=== PATIENT | male | born 1935 | race Caucasian/White ===

== ENCOUNTER 2018-06-13 05:15 | Inpatient (IN) | payer OTHER ==
[~2018-06-13] VITALS: Ht 167.6 cm; Wt 86.4 kg
[~2018-06-13 05:15] MED LIST: ALLO300T2 PO; ASPI-319 PO; ATEN-173 PO; ATOR80TA PO; CHOL100027 PO; MULTTAB58 PO; OMEP20CA9 PO; VITA400C3 PO
[2018-06-13 07:04] VITALS: BP 146/89; PULSE 90; TEMP 36.6; O2SAT 93; Ht 167.6 cm; Wt 86.4 kg
[2018-06-13 07:50] LABS: HEMATOCRIT 30.4 % (42-52); HEMOGLOBIN 9.4 g/dL (14.0-18.0); MEAN CELL VOLUME 85.2 fL (80-100); MEAN CORPUSCULAR HEMOGLOBIN 26.3 pg (25-34); MEAN CORPUSCULAR HGB CONC 30.9 g/dl (32-36); MEAN PLATELET VOLUME 8.8 fL (7.4-10.4); PLATELET COUNT 193 K/uL (130-400); RED CELL DISTRIBUTION WIDTH CV 15.1 % (11.5-14.5); RED CELL DISTRIBUTION WIDTH SD 46.5 fL (36.4-46.3); WHITE BLOOD COUNT 11.81 K/uL (4.8-10.8)
[2018-06-13] MEDS ORDERED: ONDANSETRON INJ 2 MG/ML 2 ML VIAL IV PRN (08:00)
[2018-06-13] MEDS ORDERED: PROMETHAZINE HCL INJ 12.5 MG in SODIUM CHLORIDE 0.9% 50ML 50 ML IV PRN (08:00)
[2018-06-13] MEDS ORDERED: ACETAMINOPHEN 325 MG TAB PO PRN (08:15)
[2018-06-13 08:24] LABS: ALBUMIN 3.2 gm/dl (3.4-5.0); CALCIUM 8.5 mg/dl (8.5-10.1); CREATININE 1.37 mg/dl (0.60-1.40); POTASSIUM 3.3 mmol/L (3.5-5.1); TOTAL PROTEIN 7.3 gm/dl (6.4-8.2)
[2018-06-13] MEDS ORDERED: PANTOprazole INJ 40 MG in DEXTROSE 5% 100ML 100 ML IV ONE (08:30)
[2018-06-13] MEDS: PANTOprazole INJ 40 MG in DEXTROSE 5% 100ML IV SCH ×3 (09:06→19:33)
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
[2018-06-13] MEDS ORDERED: NRN/600 PO (09:16)
[2018-06-13] MEDS ORDERED: METO25TA56 PO (09:16)
[2018-06-13] MEDS ORDERED: BUPR20DI TOP (09:16)
[2018-06-13] MEDS: SODIUM CHLORIDE 0.9% 1000ML 1,000 ML IV SCH (09:41)
[2018-06-13] MEDS: METOPROLOL TARTRATE 1 MG/ML VIAL IV. SCH ×3 (09:41→18:09)
[2018-06-13 09:46] LABS: INR 1.1 (0.9-1.1)
--- NOTE | 2018-06-13 10:41 | DIAGNOSTIC IMAGING REPORT ---
(CHEST) THORAX WITHOUT CLINICAL HISTORY: 82 years-old Male presenting with nausea, vomiting, hx of ascending aneurysm . TECHNIQUE: Multidetector CT imaging of the chest was performed without the use of intravenous contrast. IV contrast: None. A dose lowering technique was used consistent with the principles of ALARA (as low as reasonably achievable). COMPARISON: 11/08/2012. CT DOSE (mGy.cm): The estimated cumulative dose is 612.35 mGycm. FINDINGS: Machine Hoop Maker Helper topogram: Median sternotomy wires. On soft tissue windows, normal thyroid and thoracic inlet. 2 adjacent soft tissue nodules intimately associated with the cutis in the left anterior chest wall (series 4 images 125 and 133), indeterminate. No axillary, supraclavicular, or mediastinal lymphadenopathy. Evaluation of the antonio limited without intravenous contrast. Atherosclerosis of the aorta. Aneurysmal dilatation of the ascending aorta, which measures 5.1 cm in diameter, previously 4.9 cm. Aneurysmal dilatation does not extend into the aortic arch or descending thoracic aorta. Multichamber enlargement of the heart. Postsurgical changes of coronary artery bypass grafting. Graft vessel patency cannot be assessed without intravenous contrast. Coronary artery, aortic valve, and mitral annular calcification. No pericardial or pleural effusion. Small to moderate hiatal hernia. Postsurgical changes of cholecystectomy. Small duodenal diverticulum. Renovascular calcification with right renal atrophy. On lung windows, dependent groundglass and reticular opacities with associated bronchial wall thickening. Background mild apical predominant emphysema. Evaluation of the lung parenchyma is degraded by respiratory motion artifact. The previously noted solid right middle lobe nodule is no longer apparent though this may be artifactual. Allowing for motion, no new pulmonary nodule. Layering debris noted in the lower trachea. No pneumothorax. On bone windows, degenerative changes of the spine. Median sternotomy. Old left rib fractures. Posttraumatic deformity of the left scapula. Plate and screw fixation of the left clavicle. Right shoulder arthroplasty. IMPRESSION: 1. Debris in the lower trachea with dependent infiltrates and bronchial wall thickening could suggest acute on chronic aspiration. 2. 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 3. Stable to slight interval increase in size of the ascending aortic aneurysm, which now measures 5.1 cm in diameter, previously 4.9 cm. 4. Postsurgical changes of CABG. Graft vessel patency cannot be assessed without contrast. 5. Indeterminate subcutaneous nodules in the anterior left chest wall. Correlate clinically. 6. Small to moderate hiatal hernia. Electronically signed by: Gary Hamilton M.D. 06/13/2018 10:40 AM Dictated Date/Time: 06/13/2018 10:32 AM
--- NOTE | 2018-06-13 10:47 | DIAGNOSTIC IMAGING REPORT ---
ADDENDUM IMPRESSION #9: Mild stranding about the pancreatic head. Correlate with lipase level to exclude developing acute pancreatitis. Electronically signed by: Suleman Baires M.D. 06/13/2018 10:56 AM Dictated Date/Time: 06/13/2018 10:55 AM ORIGINAL REPORT ABDOMEN AND PELVIS CT WITHOUT CONTRAST CT DOSE: 966.43 mGycm HISTORY: Acute nausea and vomiting with history of abdominal aortic aneurysm nausea, vomiting, abdominal pain, hx of AAA TECHNIQUE: Multiaxial CT images of the abdomen and pelvis were performed without contrast. A dose lowering technique was utilized adhering to the principles of ALARA. COMPARISON STUDY: Chest CT of same day and chest CT 11/08/2012 FINDINGS: Prior median sternotomy. Multichamber cardiac enlargement partially imaged with dense calcifications of the mitral annulus. Coronary arterial calcifications are also noted. Mild dependent subsegmental bibasilar consolidative opacities suggest probable atelectasis with bronchial wall thickening and subpleural reticulation suggesting scarring/fibrosis. No pneumatosis or pneumoperitoneum. Study is mildly motion degraded. Moderate right renal atrophy. Bilateral renal vascular calcifications are noted. No definite renal calculi or obstructive uropathy. Mild distention of the bladder with prostamegaly. Moderate right and small fat filled left inguinal hernias. Extensive calcification of the abdominal aorta aneurysm dilation of the infrarenal abdominal aorta measures up to 3.1 x 3.1 cm (as measured on the coronal and sagittal images). No definite evidence of aneurysm rupture on this noncontrast study. Fusiform aneurysm dilation of the left common iliac artery measures 2.8 cm on the left and 2.1 cm on the right. Extensive bilateral iliac calcifications are also noted. Liver, spleen and adrenal glands are unremarkable. Mild generalized pancreatic atrophy. There is mild stranding about the pancreatic head. Resolution of the previously described intrahepatic pneumobilia. Focus of air near the ampulla suggests pneumobilia within the common bile duct distally. Findings suggest incompetent ampulla of Vater. The gallbladder appears to be surgically absent. Postoperative changes of the stomach. Small sliding-type hiatal hernia. Fluid-filled nondilated loops of small bowel are noted. Nonobstructive bowel gas pattern. Mild circumferential wall thickening about the rectum. Retained enteric contrast is noted throughout the colon. Wall thickening with nondistention involves the majority of the colon. Prominent nonenlarged periaortic lymph nodes measure up to 7 mm in short axis. Defect of the ventral abdominal wall is noted with diastases recti/large ventral abdominal wall hernia, diastases 11.4 cm. Hernia sac contains mesenteric fat and nonobstructed loops of small bowel. Demineralized appearance of the bones. Degenerative changes of the SI joints. Partial bony fusion with 1.3 cm anterolisthesis L5 on S1. Remote bilateral pars defects at L5-S1. IMPRESSION: 1. Fusiform aneurysmal dilation of the infrarenal abdominal aorta measuring up to 3.1 cm. Additionally, there is aneurysmal dilation of the bilateral common iliac arteries with extensive arterial calcifications. 2. Fluid-filled nondilated loops of small bowel may be physiologic with enteritis or ileus also in the differential. 3. Large ventral abdominal wall hernia contains nonobstructed small bowel and mesenteric fat. 4. Wall thickening involving the majority of the colon suggests sequela of partial distention. Colitis is felt to be less likely. 5. Circumferential wall thickening of the rectum. Correlate with clinical exam to exclude proctitis or less likely a mucosal mass lesion. 6. Prostatomegaly with urinary bladder distention. 7. Moderate right renal atrophy. 8. Additional findings as above. Electronically signed by: Suleman Baires M.D. 06/13/2018 10:46 AM Dictated Date/Time: 06/13/2018 10:32 AM
[2018-06-13] MEDS ORDERED: PROPOFOL IV EMULSION 10 MG/ML 20 ML VIAL ONE (10:51)
[2018-06-13] MEDS ORDERED: LIDOCAINE HCL 2% 2 ML VIAL (20MG/ML) ONE (10:51)
--- NOTE | 2018-06-13 10:51 | History & Physical Bridge Note ---
H&P Re-Evaluation Bridge Note: I have examined the patient, reviewed the History & Physical and in the interval since the performance of the History & Physical I have noted the following changes of clinical significance: No changes noted
--- NOTE | 2018-06-13 11:09 | History and Physical ---
History & Physical Date & Time of Service: Jun 13, 2018 ~ 0730 Chief Complaint: Nausea, vomiting Primary Care Physician: Kishan Buitrago M.D. History of Present Illness 82-year-old male who was transferred from [facility] for evaluation of nausea, vomiting, suspected upper GI bleeding. 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 Patient was recently discharged from [facility] 06/09 for suspected choledocholithiasis. During that admission, patient developed new onset atrial fibrillation and ERCP was canceled. Patient's LFTs have normalized. Patient reports he has felt poorly since being discharged from the hospital. He reports persistent abdominal pain, nausea, vomiting, dry heaves, hiccuping. Over the past few days, he reports emesis that has been very dark in color and stools have been very dark over the past week. He denies chest pain and shortness of breath. No lightheadedness, dizziness, diaphoresis, syncopal events. He denies fevers and chills. No urinary symptoms. At [facility], patient was found to have heme positive stool and hemoglobin of 10.3 which is down trended from prior hemoglobins. An attempt was made to transfer him to [facility] however the GI service there did not feel as though he would need an ERCP and also due to bed availability issues, the patient was transferred to [facility]. During my exam, patient continues to have hiccups episodes of dry heaving. He is hemodynamically stable. Past Medical/Surgical History Medical Problems: (1) AAA (abdominal aortic aneurysm) Permanent Comment: 3.[address] 05/2018 Status: Chronic (2) Aneurysm of left common iliac artery Permanent Comment: [address] on 05/2018 Status: Chronic (3) Aneurysm of right common iliac artery Permanent Comment: [address] 10/2017 Status: Chronic (4) Ascending aortic aneurysm Permanent Comment: 4.2 cm on echo 05/2018 Status: Chronic (5) CAD (coronary artery disease) Status: Chronic (6) Choledocholithiasis Status: Chronic (7) Chronic duodenal ulcer Permanent Comment: 2009 -complicated by duodenal colonic fistula, S/P right colectomy, duodenal stump, Viviane-en-Y gastrojejunostomy and choledochojejunostomy Status: Chronic (8) Chronic nonspecific lung disease Status: Chronic (9) CKD (chronic kidney disease), stage III Status: Chronic (10) Hypertension Status: Chronic (11) Recurrent pancreatitis Status: Chronic Surgical Problems: (1) History of cataract surgery Status: Chronic (2) History of partial colectomy Status: Chronic (3) History of total right knee replacement Status: Chronic (4) S/P CABG x 4 Permanent Comment: 1997 Status: Chronic (5) S/P revision of total knee Status: Chronic (6) S/P right TSA Status: Chronic (7) Ulnar fracture repair Status: Chronic Family History Noncontributory secondary to patient's advanced age Social History Smoking Status: Former Smoker Alcohol Use: none Marital Status: Housing status: lives with family Immunizations History of Influenza Vaccine: Yes Influenza Vaccine Date: Jul 11, 2017 History of Tetanus Vaccine?: Yes Tetanus Immunization Date: Sep 02, 2014 History of Pneumococcal: Yes Pneumococcal Date: Jul 31, 2015 Allergies Coded Allergies: Iodinated Diagnostic Agents (Verified Allergy, MOUTH NUMBNESS, 11/08/12) Home Medications Scheduled Aspirin Enteric Coated (Ecotrin Or Generic), 81 MG PO DAILY Buprenorphine (Butrans), 1 PATCH TOP WK Cholecalciferol (Vitamin D 1000 Unit), 1,000 INTER.UNIT PO DAILY Ferrous Sulfate (Ferrous Sulfate), 325 MG PO BIDM Gabapentin (Neurontin), 1 TAB PO TID Metoprolol Tartrate (Lopressor) (Lopressor), 12.5 MG PO BID Multiple Vitamin (Multivitamin), 1 TAB PO DAILY Pantoprazole (Pantoprazole Sodium), 40 MG PO BID Sucralfate (Sucralfate), 1 GM PO BID Vitamin E (Vitamin E 400 Iu), 400 INTER.UNIT PO DAILY Review of Systems ROS per HPI, all other systems reviewed and negative Physical Exam Vital Signs Date Time Temp Pulse Resp B/P (MAP) Pulse Ox O2 Delivery O2 Flow Rate FiO2 06/13/18 09:41 82 136/76 06/13/18 07:04 36.6 90 17 146/89 93 Nasal Cannula 2.0 General Appearance: WD/WN, + mild distress (Dry heaving, hiccups) Eyes: normal inspection, EOMI, sclerae normal ENT: hearing grossly normal, + pertinent finding (Mucous membranes dry) Neck: supple, no JVD, trachea midline Respiratory/Chest: no respiratory distress, + decreased breath sounds Cardiovascular: no edema, normal peripheral pulses, + tachycardia (Heart rate in the low 100s), + irregularly irregular Abdomen/GI: normal bowel sounds, soft, no organomegaly, + tenderness (Mild, generalized) Extremities/Musculoskelatal: normal inspection, no calf tenderness, normal capillary refill Neurologic/Psych: no motor/sensory deficits, alert, normal mood/affect, oriented x 3, + pertinent finding (Intermittently lethargic however arouses easily to verbal stimuli) Skin: normal color, warm/dry Diagnostics Laboratory Results Results Past 24 Hours Test 06/13/18 07:41 06/13/18 07:42 Range/Units White Blood Count 11.81 4.8-10.8 K/uL Red Blood Count 3.57 4.7-6.1 M/uL Hemoglobin 9.4 14.0-18.0 g/dL Hematocrit 30.4 42-52 % Mean Corpuscular Volume 85.2 80-100 fL Mean Corpuscular Hemoglobin 26.3 25-34 pg Mean Corpuscular Hemoglobin Concent 30.9 32-36 g/dl RDW Standard Deviation 46.5 36.4-46.3 fL RDW Coefficient of Variation 15.1 11.5-14.5 % Platelet Count 193 130-400 K/uL Mean Platelet Volume 8.8 7.4-10.4 fL Sodium Level 138 136-145 mmol/L Potassium Level 3.3 3.5-5.1 mmol/L Chloride Level 98 98-107 mmol/L Carbon Dioxide Level 31 21-32 mmol/L Anion Gap 9.0 3-11 mmol/L Blood Urea Nitrogen 49 7-18 mg/dl Creatinine 1.37 0.60-1.40 mg/dl Est Creatinine Clear Calc Drug Dose 43.1 ml/min Estimated GFR () 55.7 Estimated GFR (Non- 48.0 BUN/Creatinine Ratio 35.9 10-20 Random Glucose 157 70-99 mg/dl Calcium Level 8.5 8.5-10.1 mg/dl Magnesium Level 1.7 1.8-2.4 mg/dl Total Bilirubin 0.3 0.2-1 mg/dl Aspartate Amino Transf (AST/SGOT) 17 15-37 U/L Alanine Aminotransferase (ALT/SGPT) 26 12-78 U/L Alkaline Phosphatase 97 45-117 U/L Troponin I 0.038 0-0.045 ng/ml Total Protein 7.3 6.4-8.2 gm/dl Albumin 3.2 3.4-5.0 gm/dl Globulin 4.1 2.5-4.0 gm/dl Albumin/Globulin Ratio 0.8 0.9-2 Lipase 278 73-393 U/L Prothrombin Time 11.4 9.0-12.0 SECONDS Prothromb Time International Ratio 1.1 0.9-1.1 Impression Assessment and Plan UPPER GI BLEED -Transferred from [facility] and admitted to telemetry -Complicated GI history as outlined in PMH -Hemoglobin this a.m. 9.4, recent baseline has been ~ 11-12 -History of chronic duodenal ulcer -will start Protonix drip -Serial H&H, transfuse as needed -GI consult, case discussed with MELQUIADES Bueno; Dr. Skelton will attempt EGD this afternoon however given patient's complicated anatomy, may need transfer to [facility] HISTORY OF RECURRENT CHOLEDOCHOLITHIASIS/PANCREATITIS -LFTs and lipase currently WNL ATRIAL FIBRILLATION -Recent diagnosis -Rate controlled on metoprolol, will convert to IV while n.p.o. -Patient declined anticoagulation which is currently contraindicated at this time due to GI bleeding -Patient noted to have a brief pause on telemetry, likely vagal with persistent dry heaving; continue to monitor on telemetry, cardiology consult if needed PROLONGED QTC -Noted to be 526 on today's EKG -Was 482 on EKG from 06/08 -Daily EKG, avoid QTC prolonging agents HYPOKALEMIA, HYPOMAGNESEMIA -Likely due to GI loss -Replace, follow electrolytes HISTORY OF CAD -Stable, no reports chest pain -Holding aspirin due to GI bleeding -Continue beta-marvin HISTORY OF AAA, BILATERAL COMMON ILIAC ARTERY ANEURYSM, ASCENDING AORTIC ROOT ANEURYSM -All stable on recent imaging -Follows with vascular surgery -Will check CT chest and ABD/pelvis CHRONIC PAIN -Continue Butrans patch DVT PROPHYLAXIS -SCDs due to GI bleeding CODE STATUS -Patient is a full code as per my discussion with him. DISPOSITION -In my clinical judgment this beneficiary meets acute admission criteria, established by [facility], that includes being hospitalized through two midnights. Attending Addendum 82-year-old male with PMH of Afib, CAD, recurrent choledocholithiasis and pancreatitis was transferred from [facility] for evaluation of GI bleeding. Patient was recently discharged from [facility] for suspected choledocholithiasis. His Hbg this morning was 9.4 with baseline hgb between 11 to 12. GI consulted and plan for EGD today. Will keep NPO for now. Continue monitor H/H. Will get a CT of the abd/pelvis. MD Miranda Advanced Directives Existing Living Will: Yes Existing Power of Associate Professor Of Sociology: Yes Resuscitation Status VTE Prophylaxis Will order VTE Prophylaxis: Yes
--- NOTE | 2018-06-13 11:28 | GI REPORT ---
Patient Name: Abhijeet Joy Procedure Date: 06/13/2018 11:09 AM Date of : 1935 Admit Type: Inpatient Age: 82 Gender: Male Attending MD: Lissett Skelton DO Procedure: Upper GI endoscopy Providers: Lissett Skelton DO Referring MD: TEMO MEDEL Indications: Melena Medicines: Monitored Anesthesia Care Complications: No immediate complications. Estimated blood loss: Minimal. Estimated Blood Loss: Estimated blood loss was minimal. Procedure: Pre-Anesthesia Assessment: - Prior to the procedure, a History and Physical was performed, and patient medications, allergies and sensitivities were reviewed. The patient's tolerance of previous anesthesia was reviewed. - Patient identification and proposed procedure were verified prior to the procedure by the physician, the nurse and the speech therapist early intervention. The procedure was verified in the procedure room. - Pre-procedure physical examination revealed no contraindications to sedation. - ASA Grade Assessment: III - A patient with severe systemic disease. - After reviewing the risks and benefits, the patient was deemed in satisfactory condition to undergo the procedure. - The anesthesia plan was to use monitored anesthesia care (MAC). - Immediately prior to administration of medications, the patient was re-assessed for adequacy to receive sedatives. - The heart rate, respiratory rate, oxygen saturations, blood pressure, adequacy of pulmonary ventilation, and response to care were monitored throughout the procedure. - The physical status of the patient was re-assessed after the procedure. After obtaining informed consent, the endoscope was passed under direct vision. Throughout the procedure, the patient's blood pressure, pulse, and oxygen saturations were monitored continuously. The scope was introduced through the mouth, and advanced to the afferent jejunal loop. The upper GI endoscopy was accomplished without difficulty. The patient tolerated the procedure well. Findings: The examined esophagus was normal. A medium-sized hiatal hernia was found. The proximal extent of the gastric folds (end of tubular esophagus) was 35 cm from the incisors. The hiatal narrowing was 39 cm from the incisors. The Z-line was 35 cm from the incisors. Hematin (altered blood/isdfuj-vsxzji-wchs material) was found in the entire examined stomach. Evidence of a patent Billroth II gastrojejunostomy was found. The gastrojejunal anastomosis was characterized by several clean based ulcers which extended into the afferent limb. This was traversed. The efferent limb was not examined as it could not be traversed. The afferent limb was examined. Impression: - Normal esophagus. - Medium-sized hiatal hernia. - Hematin (altered blood/llgkfb-qmqjor-vbvb material) in the entire stomach. - Patent Billroth II gastrojejunostomy was found, characterized by several clean based ulcers. - No specimens collected. Recommendation: - Return patient to [facility] for [facility] care. - Clear liquid diet today. - Give Protonix (pantoprazole): 8 mg/hr IV by continuous infusion for 3 days. The Prontonix or equivalent at 40 mg bid x 6 weeks then 1 time daily thereafter. Patient will need screening for H pylori (stool ag) - Repeat upper endoscopy in 3 months for surveillance. - Perform MRCP today. Lissett Skelton D.O. Lissett Skelton, 06/13/2018 11:28:07 AM This report has been signed electronically. Note Initiated On: 06/13/2018 11:09 AM Number of Addenda: 0 I attest to the content of the Intraoperative Record and orders documented therein, exceptions below {[id number]}
[2018-06-13] MEDS: POTASSIUM CHLR 10 MEQ / WTR 100 ML IV SCH ×4 (12:08→15:41)
[2018-06-13] MEDS: MAGNESIUM SULFATE 1GM / D5W 100 ML IV SCH ×2 (12:08→13:12)
--- NOTE | 2018-06-13 12:09 | Anesthesiology Progress Note ---
Anesthesia Post Op Note Date & Time Jun 13, 2018 at 12:09 Vital Signs Pain Intensity: 0 Vital Signs Past 12 Hours Date Time Temp Pulse Resp B/P (MAP) Pulse Ox O2 Delivery O2 Flow Rate FiO2 06/13/18 11:52 88 20 110/74 (86) 95 Nasal Cannula 2 06/13/18 11:37 74 20 109/78 (88) 96 Nasal Cannula 4 06/13/18 11:31 83 20 90/67 (75) 95 Nasal Cannula 4 06/13/18 11:29 110/76 (87) 06/13/18 11:28 93/67 (76) 06/13/18 11:26 99/69 (79) 06/13/18 11:25 76/57 (63) 06/13/18 11:23 85/62 (70) 06/13/18 11:21 85 20 85/56 (66) 97 Nasal Cannula 4 06/13/18 10:55 36.7 84 18 112/76 (88) 98 Room Air 06/13/18 09:41 82 136/76 06/13/18 07:04 36.6 90 17 146/89 93 Nasal Cannula 2.0 Notes Mental Status: alert / awake / arousable, participated in evaluation Pt Amnestic to Procedure: Yes Nausea / Vomiting: adequately controlled Pain: adequately controlled Airway Patency, RR, SpO2: stable & adequate BP & HR: stable & adequate Hydration State: stable & adequate Anesthetic Complications: no major complications apparent
[2018-06-13 12:15] VITALS: BP 136/91; PULSE 89; TEMP 36.8; O2SAT 98
[2018-06-13 14:06] LABS: HEMATOCRIT 27.2 % (42-52); HEMOGLOBIN 8.3 g/dL (14.0-18.0)
[2018-06-13 15:51] VITALS: BP 123/73; PULSE 82; TEMP 37.3; O2SAT 99
[2018-06-13 19:17] VITALS: BP 103/64; PULSE 78; TEMP 37; O2SAT 95
[2018-06-13 20:12] LABS: HEMATOCRIT 26.1 % (42-52); HEMOGLOBIN 8.1 g/dL (14.0-18.0)
[2018-06-13 23:27] VITALS: BP 116/74; PULSE 87; TEMP 36.9; O2SAT 96
[2018-06-14] VITALS (14 sets, daily range): BP systolic 93–135; BP diastolic 58–84; PULSE 79–90; TEMP 36.4–36.9; O2SAT 91–99
[2018-06-14] MEDS: SODIUM CHLORIDE 0.9% 1000ML 1,000 ML IV SCH ×3 (00:54→23:10)
[2018-06-14] MEDS: PANTOprazole INJ 40 MG in DEXTROSE 5% 100ML IV SCH ×5 (00:54→20:04)
[2018-06-14] MEDS ORDERED: ACETAMINOPHEN 325 MG TAB PO SCH (02:00)
[2018-06-14 02:16] LABS: HEMOGLOBIN 7.6 g/dL (14.0-18.0); MEAN CELL VOLUME 86.2 fL (80-100); MEAN CORPUSCULAR HEMOGLOBIN 26.2 pg (25-34); MEAN CORPUSCULAR HGB CONC 30.4 g/dl (32-36); MEAN PLATELET VOLUME 8.8 fL (7.4-10.4); PLATELET COUNT 169 K/uL (130-400); RED CELL DISTRIBUTION WIDTH CV 15.3 % (11.5-14.5); RED CELL DISTRIBUTION WIDTH SD 47.8 fL (36.4-46.3); WHITE BLOOD COUNT 7.31 K/uL (4.8-10.8)
[2018-06-14 02:31] LABS: POTASSIUM 3.5 mmol/L (3.5-5.1)
[2018-06-14 02:49] LABS: ALBUMIN 2.7 gm/dl (3.4-5.0); CALCIUM 7.5 mg/dl (8.5-10.1); CREATININE 1.3 mg/dl (0.60-1.40)
[2018-06-14] MEDS ORDERED: FUROSEMIDE INJ 20 MG in SYRINGE 0 ML IV SCH (03:00)
[2018-06-14] MEDS ORDERED: POTASSIUM CHLORIDE 10 MEQ TABCR PO STA (06:52)
[2018-06-14 08:03] LABS: HEMATOCRIT 32.7 % (42-52); HEMOGLOBIN 10.1 g/dL (14.0-18.0)
--- NOTE | 2018-06-14 08:18 | DIAGNOSTIC IMAGING REPORT ---
MRCP HISTORY: 82 years-old Male r/o choledocholithiasis acute generalized abdominal pain with prior cholecystectomy. COMPARISON: CT abdomen and pelvis 06/13/2018 TECHNIQUE: MRCP without the use of IV contrast was obtained according to institutional protocol. FINDINGS: Study is mildly motion degraded. Heart appears enlarged. The imaged lung gonzalez appear clear. Moderate sized hiatal hernia. Moderate right renal atrophy. Mild nonspecific bilateral perinephric stranding. Tortuosity and aneurysmal dilation of the infrarenal abdominal aorta redemonstrated. Mildly prominent periaortic lymph nodes measure up to 8 mm. Ventral abdominal wall hernia redemonstrated. The liver and spleen appear unremarkable. Surgically absent gallbladder. There is mild intrahepatic biliary ductal dilation, likely physiologic from postcholecystectomy state. Common bile duct measures up to 9 mm transversely. Focus of pneumobilia is seen within the common bile duct. There are multiple filling defects with intermediate T2 signal noted within the proximal common bile duct, nicely seen on images 16 and 17 of the coronal FIESTA images and also on the MRCP images over a length of approximately 3.0 cm filling the common bile duct. No definite invasion into adjacent structures. The pancreatic duct appears unremarkable. No significant peripancreatic stranding to correlate with the suggested findings of acute pancreatitis on comparison CT. IMPRESSION: 1. Prior cholecystectomy. 2. Mild intrahepatic and extrahepatic biliary ductal dilation with the common bile duct measuring up to 9 mm is likely physiologic from postcholecystectomy state. There are multiple filling defects within the proximal to mid common bile duct over a length of 3.0 cm. Differential considerations would include choledocholithiasis with hemobilia or intraductal cholangiocarcinoma also within the differential. Further evaluation with percutaneous cholangiography may be considered. The above report was generated using voice recognition software. It may contain grammatical, syntax or spelling errors. Electronically signed by: Suleman Baires M.D. 06/14/2018 8:17 AM Dictated Date/Time: 06/14/2018 7:17 AM
--- NOTE | 2018-06-14 09:30 | Cardiology Consultation ---
Cardiology Consultation Date of Service Jun 14, 2018. Cardiology Consultation Indication: Consultation for atrial fibrillation and bradycardia History: This is an 82-year-old male patient who has had a complex GI history including previous GI bleeding from a duodenal ulcer which reported in the medical record resulted in a cardiac arrest. More recently the patient was treated at [facility] for pancreatitis due to gallstones. He underwent an ERCP were several gallstones were removed. The patient's symptoms and enzymes normalized and he was discharged. He then was seen at [facility] with GI bleeding. [facility] refused to accept the patient in transfer and therefore he was transferred here to [facility]. He underwent endoscopy which revealed a large bleeding ulcer. He has a history of ischemic heart disease and several years ago underwent coronary artery bypass surgery. His most recent echocardiogram would indicate normal LV function with mild aortic stenosis. He has never had congestive heart failure. There is no reference in the medical record regarding atrial fibrillation. After presentation here he was noted to be in persistent atrial fibrillation and started on IV metoprolol. Anticoagulation was held for obvious reasons. He has no complaints this morning. He did have some heart pauses through the night with the longest being 3.3 seconds. The patient is completely asymptomatic in regard to his atrial arrhythmias. Allergies: iodinated contrast dye Reported Home Medications Medications Dose Route/Sig Max Daily Dose Days Date Category Neurontin (Gabapentin) 600 Mg Tab 1 Tab PO TID 30 06/13/18 Reported Butrans (Buprenorphine) 20 Mcg/Hr Dis 1 Patch TOP WK 28 06/13/18 Reported Lopressor (Metoprolol Tartrate) 25 Mg Tab 12.5 Mg PO BID 06/13/18 Reported Vitamin D 1000 Unit (Cholecalciferol) 1,000 Unit Cap 1,000 Inter.unit PO DAILY 11/08/12 Reported Vitamin E 400 Iu (Vitamin E) 400 Unit Cap 400 Inter.unit PO DAILY 11/08/12 Reported Multivitamin (Multiple Vitamin) 1 Tab Tab 1 Tab PO DAILY 11/08/12 Reported Ecotrin Or Generic (Aspirin) 81 Mg Tab 81 Mg PO DAILY 11/08/12 Reported Current Inpatient Medications Medications (Trade) Dose Ordered Sig/William Route Start Time Stop Time Status Last Admin Dose Admin Promethazine HCl 12.5 mg/Sodium Chloride 50.5 ml @ 204 mls/hr Q6H PRN IV 06/13/18 08:00 07/13/18 07:59 06/13/18 08:40 204 MLS/HR Acetaminophen (Tylenol Tab) 650 mg Q4H PRN PO 06/13/18 08:15 07/13/18 08:14 Pantoprazole Sodium 40 mg/ Dextrose 100 ml @ 20 mls/hr Q5H IV 06/13/18 08:45 07/13/18 08:44 06/14/18 05:17 20 MLS/HR Metoprolol Tartrate (Lopressor Iv) 2.5 mg Q6 IV. 06/13/18 09:00 07/13/18 08:59 Future Hold 06/13/18 18:09 2.5 MG Sodium Chloride 1,000 ml @ 80 mls/hr [id number] IV 06/13/18 09:30 07/13/18 09:29 06/14/18 00:54 80 MLS/HR Acetaminophen (Tylenol Tab) 650 mg TODAY@0200 PO 06/14/18 02:00 06/14/18 11:00 06/14/18 02:09 650 MG Furosemide 20 mg/ Syringe 2 ml @ 4 mls/min TODAY@0300 IV 06/14/18 03:00 06/14/18 11:00 06/14/18 04:46 4 MLS/MIN Non-Formulary Medication (Buprenorphine (Butrans)) 1 patch WK TOP 06/14/18 09:15 07/14/18 09:14 UNV Past medical history: As outlined above the patient is status post coronary artery bypass surgery. He has no previous history of congestive heart failure or atrial arrhythmias. His most recent echocardiogram indicates LVEF of 55%. Mild aortic stenosis. He has had a long extensive history of previous GI problems and surgeries. Social history: Patient is currently non-smoker Family medical history: Noncontributory Review of systems: The 10 point review of systems is negative except for the history of chief. Vital Signs Past 12 Hours Date Time Temp Pulse Resp B/P (MAP) Pulse Ox O2 Delivery O2 Flow Rate FiO2 06/14/18 08:00 Nasal Cannula 2.0 06/14/18 07:30 36.5 79 19 135/70 (91) 98 Nasal Cannula 2.0 06/14/18 06:40 36.5 80 18 111/65 97 2.0 06/14/18 05:40 36.5 86 18 111/74 97 2.0 06/14/18 05:10 36.5 88 16 108/68 96 2.0 06/14/18 04:54 36.5 79 18 102/65 96 06/14/18 04:44 36.4 85 18 93/58 98 06/14/18 04:15 36.5 86 20 107/69 97 06/14/18 03:15 36.8 85 18 110/73 99 06/14/18 02:45 36.7 87 18 105/68 98 06/14/18 02:24 36.4 83 18 114/70 96 06/14/18 02:11 36.9 90 18 99/66 (77) 95 Room Air 06/14/18 00:16 Nasal Cannula 2.0 06/13/18 23:27 36.9 87 16 116/74 (88) 96 Nasal Cannula 2.0 General Appearance: Alert and Oriented x3. NAD. Head: Normocephalic Atraumatic. Eyes: PERRLA, EOMI, conjunctiva and sclera clear Neck: Supple. No carotid bruits noted. No JVD. No HJD. Respiratory: Breath sounds clear to auscultation bilaterally. No w/r/r. Cardiovascular: Reg rate and rhythm. S1 and S2 noted. No murmurs, rubs, gallops. PMI non displace. Abdomen: Normal bowel sounds, soft nontender. no abdominal bruits. Extremities: No edema, no clubbing or cyanosis. distal pulses 2/4 bilaterally. Neuro: No focal deficits. Psychiatric: Normal affect. Last 24 Hours Test 06/13/18 13:53 06/13/18 19:49 06/14/18 01:53 06/14/18 07:54 Hemoglobin 8.3 g/dL 8.1 g/dL 7.6 g/dL 10.1 g/dL Hematocrit 27.2 % 26.1 % 25.0 % 32.7 % Troponin I 0.046 ng/ml 0.044 ng/ml 0.044 ng/ml White Blood Count 7.31 K/uL Red Blood Count 2.90 M/uL Mean Corpuscular Volume 86.2 fL Mean Corpuscular Hemoglobin 26.2 pg Mean Corpuscular Hemoglobin Concent 30.4 g/dl RDW Standard Deviation 47.8 fL RDW Coefficient of Variation 15.3 % Platelet Count 169 K/uL Mean Platelet Volume 8.8 fL Sodium Level 140 mmol/L Potassium Level 3.5 mmol/L Chloride Level 104 mmol/L Carbon Dioxide Level 31 mmol/L Anion Gap 5.0 mmol/L Blood Urea Nitrogen 39 mg/dl Creatinine 1.30 mg/dl Est Creatinine Clear Calc Drug Dose 45.4 ml/min Estimated GFR () 59.3 Estimated GFR (Non- 51.2 BUN/Creatinine Ratio 29.8 Random Glucose 104 mg/dl Calcium Level 7.5 mg/dl Magnesium Level 1.9 mg/dl Total Bilirubin 0.3 mg/dl Aspartate Amino Transf (AST/SGOT) 15 U/L Alanine Aminotransferase (ALT/SGPT) 21 U/L Alkaline Phosphatase 79 U/L Total Protein 6.0 gm/dl Albumin 2.7 gm/dl Globulin 3.3 gm/dl Albumin/Globulin Ratio 0.8 Lipase 394 U/L Lyme Disease IgM Antibody NEG Impression: 1. Persistent atrial fibrillation 2. GI bleeding due to a large duodenal ulcer 3. Previous coronary artery bypass surgery Recommendations: The patient was taken off of his metoprolol last night. His heart rates are fairly well controlled with no medications. His longest heart pause was 3.3 seconds while he was sleeping. According to guideline for device implant we would not consider putting a pacemaker unless the patient were symptomatic or was having asymptomatic pauses of at least 5 seconds. He is not a candidate for short or long-term anticoagulation. At this point I think it is best to leave him in the atrial fibrillation and conservatively manage him.
--- NOTE | 2018-06-14 10:01 | Hospitalist Progress Note ---
Hospitalist Progress Note Date of Service Jun 14, 2018. (Meagan Navarrete ., MELQUIADES) The patient was seen and examined by me He was evaluated by Sondra Chávez [employer] Denies any symptoms as of today and wants to go home On examination No apparent distress Hemodynamically stable Chest-clear to auscultate bilaterally Heart-regular, no murmur Abdomen-soft, nontender and no organomegaly Extremities-negative for any edema Labs and imaging studies and procedures noted Has been getting intravenous Protonix which will be continued for a total of 3 days Has choledocholithiasis-we will arrange for outpatient appointment in [place] Likely be discharged tomorrow in the afternoon Agree with assessment and plan as outlined above Dr. Gertrude Baumann (Lakhwinder Baumann M.D.) Subjective Patient seen and examined. Feeling much better this morning. S/P EGD yesterday which noted several clean-based ulcers. Required 1 unit PRBC throughout the night. Tolerating clear liquid diet. Denies abdominal pain and nausea. No bowel movement yet. Denies chest pain, lightheadedness, dizziness. (Meagan Navarrete ., MELQUIADES) Objective Vital Signs Date Time Temp Pulse Resp B/P (MAP) Pulse Ox O2 Delivery O2 Flow Rate FiO2 06/14/18 08:00 Nasal Cannula 2.0 06/14/18 07:30 36.5 79 19 135/70 (91) 98 Nasal Cannula 2.0 06/14/18 06:40 36.5 80 18 111/65 97 2.0 06/14/18 05:40 36.5 86 18 111/74 97 2.0 06/14/18 05:10 36.5 88 16 108/68 96 2.0 06/14/18 04:54 36.5 79 18 102/65 96 06/14/18 04:44 36.4 85 18 93/58 98 06/14/18 04:15 36.5 86 20 107/69 97 06/14/18 03:15 36.8 85 18 110/73 99 06/14/18 02:45 36.7 87 18 105/68 98 06/14/18 02:24 36.4 83 18 114/70 96 06/14/18 02:11 36.9 90 18 99/66 (77) 95 Room Air 06/14/18 00:16 Nasal Cannula 2.0 06/13/18 23:27 36.9 87 16 116/74 (88) 96 Nasal Cannula 2.0 06/13/18 20:00 Nasal Cannula 2.0 06/13/18 19:17 37.0 78 18 103/64 (77) 95 Nasal Cannula 2.0 06/13/18 18:09 93 123/73 06/13/18 15:51 37.3 82 22 123/73 (90) 99 Nasal Cannula 2.0 06/13/18 12:15 36.8 89 17 136/91 (106) 98 Room Air 06/13/18 12:15 89 136/91 06/13/18 11:52 88 20 110/74 (86) 95 Nasal Cannula 2 06/13/18 11:37 74 20 109/78 (88) 96 Nasal Cannula 4 06/13/18 11:31 83 20 90/67 (75) 95 Nasal Cannula 4 06/13/18 11:29 110/76 (87) 06/13/18 11:28 93/67 (76) 06/13/18 11:26 99/69 (79) 06/13/18 11:25 76/57 (63) 06/13/18 11:23 85/62 (70) 06/13/18 11:21 85 20 85/56 (66) 97 Nasal Cannula 4 06/13/18 10:55 36.7 84 18 112/76 (88) 98 Room Air 06/13/18 09:41 82 136/76 (Meagan Navarrete ., [employer]) Physical Exam General Appearance: no apparent distress Respiratory/Chest: lungs clear, normal breath sounds, no respiratory distress Cardiovascular: no edema, + irregularly irregular, + normal peripheral pulses Abdomen: normal bowel sounds, non tender, soft, + distended Neurologic/Psychiatric: alert, oriented x 3 (Meagan Navarrete ., [employer]) Laboratory Results Item Value Date Time White Blood Count 7.31 K/uL 06/14/18152 Hemoglobin 7.6 g/dL L 06/14/18152 Hematocrit 25.0 % L 06/14/18152 Hemoglobin 10.1 g/dL L 06/14/18 0754 Platelet Count 169 K/uL 06/14/18 015 Sodium Level 140 mmol/L 06/14/18 015 Potassium Level 3.5 mmol/L 06/14/18 0153 Blood Urea Nitrogen 39 mg/dl H 06/14/18 0153 Creatinine 1.30 mg/dl 06/14/18 0153 Magnesium Level 1.9 mg/dl 06/14/18 0153 (Meagan Navarrete, MELQUIADES) Diagnostic Results MRCP IMPRESSION: 1. Prior cholecystectomy. 2. Mild intrahepatic and extrahepatic biliary ductal dilation with the common bile duct measuring up to 9 mm is likely physiologic from postcholecystectomy state. There are multiple filling defects within the proximal to mid common bile duct over a length of 3.0 cm. Differential considerations would include choledocholithiasis with hemobilia or intraductal cholangiocarcinoma also within the differential. Further evaluation with percutaneous cholangiography may be considered. (Meagan Navarrete, MELQUIADES) Assessment and Plan UPPER GI BLEED DUE TO GASTROJEJUNOSTOMY ANASTOMOSIS ULCERS -Transferred from [place] on 06/13 and admitted to telemetry -Hemoglobin dropped to 7.6 on 06/14 -received 1 unit PRBC, repeat hemoglobin 10.1 -s/p EGD on 06/13 which showed several clean-based gastrojejunostomy anastomosis ulcers -Will need Protonix drip for 72 hours; then transitioned to Protonix 40 mg p.o. twice daily 6 weeks with follow-up EGD in 3 months -Stool for H. 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, S/P right colectomy, duodenal stump, Viviane-en-Y gastrojejunostomy and choledochojejunostomy -will need close follow-up with GI at [facility] for ERCP (unable to be performed at [facility] due to complicated anatomy) ATRIAL FIBRILLATION WITH PAUSES -Recent diagnosis -Had a brief pause noted on telemetry yesterday while having persistent dry heaving, and initially felt to be vagal in nature however 2-3 second pauses have continued throughout the night -Patient asymptomatic -Metoprolol DC'd -Patient initially declined anticoagulation which is currently contraindicated at this time due to GI bleeding -Cardiology consult, case discussed with Dr. Franco PROLONGED QTC -526 06/13 -> 506 06/14 -Was 482 on EKG from 06/08 -Daily EKG, avoid QTC prolonging agents HYPOKALEMIA, HYPOMAGNESEMIA -Likely due to GI loss -Replace, follow electrolytes HISTORY OF CAD -Stable, no reports chest pain -Holding aspirin due to GI bleeding -Beta-marvin on hold due to pauses HISTORY OF AAA, BILATERAL COMMON ILIAC ARTERY ANEURYSM, ASCENDING AORTIC ROOT ANEURYSM -All stable on CT chest, ABD/pelvis -Follows with vascular surgery CHRONIC PAIN -Continue Butrans patch DVT PROPHYLAXIS -SCDs due to GI bleeding CODE STATUS -Patient is a full code as per my discussion with him admission. DISPOSITION -Expect DC home once medically stable -PT/OT, case management consults (Meagan Navarrete ., MELQUIADES)
--- NOTE | 2018-06-14 10:27 | Clinical Documentation Query ---
CLINICAL DOCUMENTATION QUERY 82 yo male admitted with GI bleed. Patient's hgb decreased from 9.4 to 7.6 in a 1 day period. Patient was transfused 1 unit PRBCs. In your clinical opinion is this patient being managed for: ( + ) Acute blood-loss anemia ( ) Not Agree ( ) Other explanation of clinical findings (No explanation is considered a No Response) ( ) Unable to determine ( ) Need to Discuss (Phone CDS or qliq) (No discussion is considered a No Response) The medical record reflects the following clinical findings, treatment, and risk factors. Clinical Indicators: As above Treatment: As above, telemetry, serial CBCs, EGD, GI consult Risk Factors: Hx chronic duodenal ulcer with duodenal colonic fistula, pancreatitis, choledocholithiasis Please clarify and document your clinical opinion in the progress notes and discharge summary. Terms such as "probable", "suspected", "likely", "questionable", "possible", or "still to be ruled out" are acceptable. IF IN AGREEMENT, YOU MUST DOCUMENT ABOVE DIAGNOSTIC STATEMENT IN DAILY PROGRESS NOTES AND DISCHARGE SUMMARY. This document is not part of the patient's record. Thank You, Jacklyn Wadsworth RN, MSN [phone]
--- NOTE | 2018-06-14 11:10 | Gastroenterology Progress Note ---
Progress Note Date of Service: Jun 14, 2018 Subjective Pt evaluation today including: conversation w/ patient, physical exam, chart review, lab review, review of inpatient medication list Pt did well overnight, no more melena, abd pain, n/v. Received 1U PRBC transfusion, Hgb up from 8 to 10. He tolerated CL diet well. MRCP yesterday showed intra/extrahepatic biliary ductal dilation w CBD 9mm, s/p cholecystectomy , multiple filling defect on proximal to mid CBD over length of 3cm. Given his hx of choledocholithiasis, likely another occurrence of this Review of Systems Constitutional: No fever, No chills Respiratory: No cough, No shortness of breath Cardiac: No chest pain Abdomen: No pain, No nausea, No vomiting Skin: No rash, No itch, No jaundice Medications Current Inpatient Medications Medications (Trade) Dose Ordered Sig/William Route Start Time Stop Time Status Last Admin Dose Admin Promethazine HCl 12.5 mg/Sodium Chloride 50.5 ml @ 204 mls/hr Q6H PRN IV 06/13/18 08:00 07/13/18 07:59 06/13/18 08:40 204 MLS/HR Acetaminophen (Tylenol Tab) 650 mg Q4H PRN PO 06/13/18 08:15 07/13/18 08:14 Pantoprazole Sodium 40 mg/ Dextrose 100 ml @ 20 mls/hr Q5H IV 06/13/18 08:45 07/13/18 08:44 06/14/18 09:45 20 MLS/HR Metoprolol Tartrate (Lopressor Iv) 2.5 mg Q6 IV. 06/13/18 09:00 07/13/18 08:59 Future Hold 06/13/18 18:09 2.5 MG Sodium Chloride 1,000 ml @ 80 mls/hr [id number] IV 06/13/18 09:30 07/13/18 09:29 06/14/18 10:34 80 MLS/HR Acetaminophen (Tylenol Tab) 650 mg TODAY@0200 PO 06/14/18 02:00 06/14/18 11:00 06/14/18 02:09 650 MG Furosemide 20 mg/ Syringe 2 ml @ 4 mls/min TODAY@0300 IV 06/14/18 03:00 06/14/18 11:00 06/14/18 04:46 4 MLS/MIN Miscellaneous Information (Order Awaiting Action) 1 ea QS N/A 06/14/18 16:00 07/14/18 15:59 Objective Vital Signs Date Time Temp Pulse Resp B/P (MAP) Pulse Ox O2 Delivery O2 Flow Rate FiO2 06/14/18 10:42 36.5 88 18 109/66 (80) 94 Room Air 06/14/18 08:00 Nasal Cannula 2.0 06/14/18 07:30 36.5 79 19 135/70 (91) 98 Nasal Cannula 2.0 06/14/18 06:40 36.5 80 18 111/65 97 2.0 06/14/18 05:40 36.5 86 18 111/74 97 2.0 06/14/18 05:10 36.5 88 16 108/68 96 2.0 06/14/18 04:54 36.5 79 18 102/65 96 06/14/18 04:44 36.4 85 18 93/58 98 06/14/18 04:15 36.5 86 20 107/69 97 06/14/18 03:15 36.8 85 18 110/73 99 06/14/18 02:45 36.7 87 18 105/68 98 06/14/18 02:24 36.4 83 18 114/70 96 06/14/18 02:11 36.9 90 18 99/66 (77) 95 Room Air 06/14/18 00:16 Nasal Cannula 2.0 06/13/18 23:27 36.9 87 16 116/74 (88) 96 Nasal Cannula 2.0 06/13/18 20:00 Nasal Cannula 2.0 06/13/18 19:17 37.0 78 18 103/64 (77) 95 Nasal Cannula 2.0 06/13/18 18:09 93 123/73 06/13/18 15:51 37.3 82 22 123/73 (90) 99 Nasal Cannula 2.0 06/13/18 12:15 36.8 89 17 136/91 (106) 98 Room Air 06/13/18 12:15 89 136/91 06/13/18 11:52 88 20 110/74 (86) 95 Nasal Cannula 2 06/13/18 11:37 74 20 109/78 (88) 96 Nasal Cannula 4 06/13/18 11:31 83 20 90/67 (75) 95 Nasal Cannula 4 06/13/18 11:29 110/76 (87) 06/13/18 11:28 93/67 (76) 06/13/18 11:26 99/69 (79) 06/13/18 11:25 76/57 (63) 06/13/18 11:23 85/62 (70) 06/13/18 11:21 85 20 85/56 (66) 97 Nasal Cannula 4 Physical Exam General Appearance: WD/WN, no apparent distress Eyes: normal inspection, PERRL, EOMI Neck: supple, no JVD, trachea midline Respiratory/Chest: normal breath sounds, no respiratory distress, no accessory muscle use Cardiovascular: regular rate, rhythm, no gallop, no murmur Abdomen: normal bowel sounds, non tender, soft Extremities: normal inspection, no pedal edema, no calf tenderness Neurologic/Psych: alert, normal mood/affect, oriented x 3 Skin: normal color, no jaundice, no rash Laboratory Results Last 24 Hours Test 06/13/18 13:53 06/13/18 19:49 06/14/18 01:53 06/14/18 07:54 Hemoglobin 8.3 g/dL 8.1 g/dL 7.6 g/dL 10.1 g/dL Hematocrit 27.2 % 26.1 % 25.0 % 32.7 % Troponin I 0.046 ng/ml 0.044 ng/ml 0.044 ng/ml White Blood Count 7.31 K/uL Red Blood Count 2.90 M/uL Mean Corpuscular Volume 86.2 fL Mean Corpuscular Hemoglobin 26.2 pg Mean Corpuscular Hemoglobin Concent 30.4 g/dl RDW Standard Deviation 47.8 fL RDW Coefficient of Variation 15.3 % Platelet Count 169 K/uL Mean Platelet Volume 8.8 fL Sodium Level 140 mmol/L Potassium Level 3.5 mmol/L Chloride Level 104 mmol/L Carbon Dioxide Level 31 mmol/L Anion Gap 5.0 mmol/L Blood Urea Nitrogen 39 mg/dl Creatinine 1.30 mg/dl Est Creatinine Clear Calc Drug Dose 45.4 ml/min Estimated GFR () 59.3 Estimated GFR (Non- 51.2 BUN/Creatinine Ratio 29.8 Random Glucose 104 mg/dl Calcium Level 7.5 mg/dl Magnesium Level 1.9 mg/dl Total Bilirubin 0.3 mg/dl Aspartate Amino Transf (AST/SGOT) 15 U/L Alanine Aminotransferase (ALT/SGPT) 21 U/L Alkaline Phosphatase 79 U/L Total Protein 6.0 gm/dl Albumin 2.7 gm/dl Globulin 3.3 gm/dl Albumin/Globulin Ratio 0.8 Lipase 394 U/L Lyme Disease IgM Antibody NEG Assessment and Plan Patient is a 82 year old male seen for anemia, melena x 1 week. EGD on 06/13/18 showed multiple clean based ulcers at his Billroth II anastomosis site. He hasn' t had any more signs of GI bleeding overnight. Given 1U PRBC transfusion Hgb up to 10 this AM. He has a complicated GI hx: hx of takedown duodenal fistula, right hemicolectomy , antrectomy with abner-en-Y gastrojejunostomy, cholecystectomy, placement of T tube and repair of umbilical hernia for a duodenal fistula on 03/18/2010 complicated by evisceration that was repaired by Dr. Soni on 03/30/10. Post op complication included sepsis at that time. He also have been having recurrent pancreatitis, recently admitted in [facility] mid May and had repeated ERCP for choledocholithiasis removal by Dr. Cha in [facility]. Last ERCP done 2017. During his last admission at [facility], they aborted repeat ERCP as he went into Afib w RVR. MRCP this admission showed likely recurrence of choledocholithiasis. Plan - Advanced to [place] diet. - PPI bolus and gtt x 72 hrs then Protonix 40mg BID. Repeat EGD for ulcer re- eval in 3 months' time. - Monitor H/H and transfuse prn - Given his post op anatomy and possibly difficulty in accessing his biliary tree, his ERCP for choledocholithiasis removal should be done at [facility] by Dr. Cha who did his past ERCPs. We will send message to [facility] GI operations scheduler to assist w appt. I saw and evaluated the patient. He appears to have had no recent bleeding as his melena has stopped. I would suggest the patient be on Protonix for at least other 24 hours prior to transitioning to an oral medication. He should then be on Protonix or equivalent 40 mg twice daily for 6 weeks then 1 time daily thereafter. We will plan on repeating an endoscopy in - weeks. The patient's MRI does show evidence of a new stone within the common bile duct. Given his post surgical anatomy the patient will be best served by a team that is proficient with his postsurgical anatomy. The patient has no abdominal pain , nausea or elevation of his liver enzymes I am so the ERCP is not urgent at present.
[2018-06-14 16:24] LABS: HEMOGLOBIN 9.6 g/dL (14.0-18.0)
[2018-06-15] VITALS (7 sets, daily range): BP systolic 113–141; BP diastolic 63–79; PULSE 69–84; TEMP 36.4–37; O2SAT 94–99
[2018-06-15] MEDS: PANTOprazole INJ 40 MG in DEXTROSE 5% 100ML IV SCH ×5 (00:42→20:09)
[2018-06-15 06:54] LABS: HEMATOCRIT 28.6 % (42-52); HEMOGLOBIN 8.8 g/dL (14.0-18.0); MEAN CELL VOLUME 85.6 fL (80-100); MEAN CORPUSCULAR HEMOGLOBIN 26.3 pg (25-34); MEAN CORPUSCULAR HGB CONC 30.8 g/dl (32-36); MEAN PLATELET VOLUME 8.2 fL (7.4-10.4); PLATELET COUNT 153 K/uL (130-400); RED CELL DISTRIBUTION WIDTH CV 15.1 % (11.5-14.5); RED CELL DISTRIBUTION WIDTH SD 47.1 fL (36.4-46.3); WHITE BLOOD COUNT 5.78 K/uL (4.8-10.8)
[2018-06-15 07:33] LABS: CREATININE 1.14 mg/dl (0.60-1.40); POTASSIUM 3.7 mmol/L (3.5-5.1)
[2018-06-15] MEDS ORDERED: POTASSIUM CHLORIDE 20 MEQ TABCR PO STA (07:44)
[2018-06-15 08:23] LABS: ALBUMIN 2.6 gm/dl (3.4-5.0); TOTAL PROTEIN 5.8 gm/dl (6.4-8.2)
[2018-06-15] MEDS: MAGNESIUM SULFATE 1GM / D5W 100 ML IV SCH ×2 (08:55→09:48)
[2018-06-15] MEDS ORDERED: METOPROLOL TARTRATE 25 MG TAB PO STA (09:09)
--- NOTE | 2018-06-15 09:10 | Hospitalist Progress Note ---
Hospitalist Progress Note Date of Service Jun 15, 2018. (Meagan Navarrete CRNP) Attending addendum: The patient was seen and examined by me Has any issues with atrial fibrillation with RVR last night Has been started on a beta-marvin by the law secretary Denies any symptoms today On examination: Hemodynamically stable and the heart rate is controlled at around upper 60s Chest-clear to auscultate bilaterally Heart-regular no murmur Abdomen-soft, benign., nontender Extremities-negative for any edema RECORDS MANAGEMENT SPECIALIST-alert, awake and oriented Assessment and plan; Agree with assessment and plan as outlined by C NRP Continue current medications. Likely discharge tomorrow Dr. Gertrude Baumann (Lakhwinder Baumann M.D.) Subjective Patient seen and examined. Feels well this morning. Reports abdominal gas pains passing flatus however no BM yet. Tolerating full liquid diet. No nausea. Denies chest pain, palpitations, shortness of breath, lightheadedness, dizziness. (Meagan Navarrete CRNP) Objective Vital Signs Date Time Temp Pulse Resp B/P (MAP) Pulse Ox O2 Delivery O2 Flow Rate FiO2 06/15/18 07:06 36.6 73 18 121/74 (90) 98 Nasal Cannula 2.0 06/15/18 04:21 36.9 84 18 118/68 (85) 99 Nasal Cannula 2.0 06/15/18 00:29 37.0 83 18 113/73 (86) 98 Nasal Cannula 2.0 06/14/18 20:18 36.6 84 18 126/84 (98) 97 Room Air 06/14/18 20:04 Room Air 06/14/18 16:19 36.7 86 18 119/72 (88) 91 Room Air 06/14/18 10:42 36.5 88 18 109/66 (80) 94 Room Air (Meagan Navarrete CRNP) Physical Exam General Appearance: no apparent distress Respiratory/Chest: lungs clear, normal breath sounds, no respiratory distress Cardiovascular: no edema, + irregularly irregular (Heart rate controlled), + normal peripheral pulses Abdomen: normal bowel sounds, non tender, soft, + distended Neurologic/Psychiatric: alert, oriented x 3 (Meagan Navarrete CRNP) Laboratory Results Item Value Date Time White Blood Count 5.78 K/uL 06/15/18 0643 Hemoglobin 8.8 g/dL L 06/15/18 0643 Hematocrit 28.6 % L 06/15/18 06 Platelet Count 153 K/uL 06/15/18 0643 Sodium Level 139 mmol/L 06/15/18 06 Potassium Level 3.7 mmol/L 06/15/18 0643 Blood Urea Nitrogen 21 mg/dl H 06/15/18 06 Creatinine 1.14 mg/dl 06/15/18 06 (Meagan Navarrete ., MELQUIADES) Assessment and Plan UPPER GI BLEED DUE TO GASTROJEJUNOSTOMY ANASTOMOSIS ULCERS ACUTE BLOOD LOSS ANEMIA -Transferred from [place] on 06/13 and admitted to telemetry -Hemoglobin dropped to 7.6 on 06/14 -received 1 unit PRBC -Hemoglobin 8.8 today -s/p EGD on 06/13 which showed several clean-based gastrojejunostomy anastomosis ulcers -Will need Protonix drip for 72 hours (to be completed morning of 06/16); then transition to Protonix 40 mg p.o. twice daily 6 weeks with follow-up EGD in 3 months -Stool for H. 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, S/P right colectomy, duodenal stump, Viviane-en-Y gastrojejunostomy and choledochojejunostomy -will need close follow-up with GI at [facility] for ERCP (unable to be performed at [facility] due to complicated anatomy) ATRIAL FIBRILLATION WITH PAUSES -Recent diagnosis -Had a brief pause noted on telemetry while having persistent dry heaving, and initially felt to be vagal in nature however developed more frequent 2-3 second pauses and metoprolol was held; now having some increased HRs with activity and metoprolol was resumed by cardiology -Patient asymptomatic -Patient initially declined anticoagulation which is currently contraindicated at this time due to GI bleeding -Cardiology consult, input appreciated PROLONGED QTC -526 06/13 -> 506 06/14 -> 466 06/15 -Was 482 on EKG from 06/08 -Daily EKG, avoid QTC prolonging agents HYPOKALEMIA, HYPOMAGNESEMIA -Likely due to GI loss -Replace, follow electrolytes HISTORY OF CAD -Stable, no reports chest pain -ok to resume ASA per GI -metoprolol resumed as above HISTORY OF AAA, BILATERAL COMMON ILIAC ARTERY ANEURYSM, ASCENDING AORTIC ROOT ANEURYSM -All stable on CT chest, ABD/pelvis -Follows with vascular surgery CHRONIC PAIN -Continue Butrans patch DVT PROPHYLAXIS -SCDs due to GI bleeding CODE STATUS -Patient is a full code as per my discussion with him admission. DISPOSITION -Expect DC home once medically stable -PT/OT, case management consults (Meagan Navarrete ., MELQUIADES)
--- NOTE | 2018-06-15 09:11 | Cardiology Follow-Up ---
Subjective Subjective Date of Service: Jun 15, 2018. Additional Details: GI note appreciated. The patient had an uneventful night. He continues to have high heart rates especially with activity. No more significant bradycardia pauses. Review of Systems Constitutional: No fever, No chills Respiratory: No cough, No shortness of breath Cardiac: No chest pain Objective Vital Signs Last Vital Signs Documentation Date Time Temp Pulse Resp B/P (MAP) Pulse Ox O2 Delivery O2 Flow Rate FiO2 06/15/18 07:06 36.6 73 18 121/74 (90) 98 Nasal Cannula 2.0 Physical Exam: General Appearance: no apparent distress Respiratory/Chest: lungs clear, normal breath sounds, no respiratory distress Cardiovascular: no edema, + irregularly irregular, + normal peripheral pulses Abdomen: normal bowel sounds, non tender, soft, + distended Neurologic/Psychiatric: alert, oriented x 3 Assessment and Plan Impression: 1. Persistent atrial fibrillation 2. GI bleeding due to a large duodenal ulcer 3. Previous coronary artery bypass surgery Recommendations: I will restart the patient on Lopressor at 12.5 mg twice daily. The patient is anxious to return home. It would be best if he were able to remain in the hospital at least until tomorrow however, if he cannot stay then we will follow him as an outpatient. Medications: Current Inpatient Medications Medications (Trade) Dose Ordered Sig/William Route Start Time Stop Time Status Last Admin Dose Admin Promethazine HCl 12.5 mg/Sodium Chloride 50.5 ml @ 204 mls/hr Q6H PRN IV 06/13/18 08:00 07/13/18 07:59 06/13/18 08:40 204 MLS/HR Acetaminophen (Tylenol Tab) 650 mg Q4H PRN PO 06/13/18 08:15 07/13/18 08:14 Pantoprazole Sodium 40 mg/ Dextrose 100 ml @ 20 mls/hr Q5H IV 06/13/18 08:45 07/13/18 08:44 06/15/18 05:47 20 MLS/HR Metoprolol Tartrate (Lopressor Iv) 2.5 mg Q6 IV. 06/13/18 09:00 07/13/18 08:59 Future Hold 06/13/18 18:09 2.5 MG Sodium Chloride 1,000 ml @ 80 mls/hr [id number] IV 06/13/18 09:30 07/13/18 09:29 06/14/18 23:10 80 MLS/HR Miscellaneous Information (Order Awaiting Action) 1 ea QS N/A 06/14/18 16:00 07/14/18 15:59 Magnesium Sulfate 100 ml @ 100 mls/hr Q1H IV 06/15/18 07:53 06/15/18 09:52 06/15/18 08:55 100 MLS/HR Lab Results: Last 24 Hours Test 06/14/18 15:58 06/15/18 06:43 Hemoglobin 9.6 g/dL 8.8 g/dL Hematocrit 31.0 % 28.6 % White Blood Count 5.78 K/uL Red Blood Count 3.34 M/uL Mean Corpuscular Volume 85.6 fL Mean Corpuscular Hemoglobin 26.3 pg Mean Corpuscular Hemoglobin Concent 30.8 g/dl RDW Standard Deviation 47.1 fL RDW Coefficient of Variation 15.1 % Platelet Count 153 K/uL Mean Platelet Volume 8.2 fL Sodium Level 139 mmol/L Potassium Level 3.7 mmol/L Chloride Level 104 mmol/L Carbon Dioxide Level 27 mmol/L Anion Gap 7.0 mmol/L Blood Urea Nitrogen 21 mg/dl Creatinine 1.14 mg/dl Est Creatinine Clear Calc Drug Dose 51.7 ml/min Estimated GFR () 69.5 Estimated GFR (Non- 60.0 BUN/Creatinine Ratio 18.1 Random Glucose 96 mg/dl Calcium Level 8.0 mg/dl Magnesium Level 1.7 mg/dl Total Bilirubin 0.4 mg/dl Direct Bilirubin 0.1 mg/dl Aspartate Amino Transf (AST/SGOT) 23 U/L Alanine Aminotransferase (ALT/SGPT) 23 U/L Alkaline Phosphatase 82 U/L Total Protein 5.8 gm/dl Albumin 2.6 gm/dl
[2018-06-15] MEDS: SODIUM CHLORIDE 0.9% 1000ML 1,000 ML IV SCH ×2 (11:38→23:18)
--- NOTE | 2018-06-15 11:58 | Gastroenterology Progress Note ---
Progress Note Date of Service: Jun 15, 2018 Subjective Pt evaluation today including: conversation w/ patient, physical exam, chart review, lab review, review of inpatient medication list Pt w some coffee ground looking stools this AM. Denies any abd pain, n/v. Hgb dropped from 9.6 to 8.8. Review of Systems Constitutional: No fever, No chills Respiratory: No cough, No shortness of breath Cardiac: No chest pain Abdomen: + GI bleeding, No pain, No nausea, No vomiting Skin: No rash, No itch, No jaundice Medications Current Inpatient Medications Medications (Trade) Dose Ordered Sig/William Route Start Time Stop Time Status Last Admin Dose Admin Promethazine HCl 12.5 mg/Sodium Chloride 50.5 ml @ 204 mls/hr Q6H PRN IV 06/13/18 08:00 07/13/18 07:59 06/13/18 08:40 204 MLS/HR Acetaminophen (Tylenol Tab) 650 mg Q4H PRN PO 06/13/18 08:15 07/13/18 08:14 Pantoprazole Sodium 40 mg/ Dextrose 100 ml @ 20 mls/hr Q5H IV 06/13/18 08:45 07/13/18 08:44 06/15/18 11:38 20 MLS/HR Metoprolol Tartrate (Lopressor Iv) 2.5 mg Q6 IV. 06/13/18 09:00 07/13/18 08:59 Future Hold 06/13/18 18:09 2.5 MG Sodium Chloride 1,000 ml @ 80 mls/hr [id number] IV 06/13/18 09:30 07/13/18 09:29 06/15/18 11:38 80 MLS/HR Miscellaneous Information (Order Awaiting Action) 1 ea QS N/A 06/14/18 16:00 07/14/18 15:59 Metoprolol Tartrate (Lopressor Tab) 12.5 mg BID PO 06/15/18 21:00 07/15/18 20:59 Objective Vital Signs Date Time Temp Pulse Resp B/P (MAP) Pulse Ox O2 Delivery O2 Flow Rate FiO2 06/15/18 11:09 36.6 74 22 141/69 (93) 95 Room Air 06/15/18 08:00 Nasal Cannula 06/15/18 07:06 36.6 73 18 121/74 (90) 98 Nasal Cannula 2.0 06/15/18 04:21 36.9 84 18 118/68 (85) 99 Nasal Cannula 2.0 06/15/18 00:29 37.0 83 18 113/73 (86) 98 Nasal Cannula 2.0 06/14/18 20:18 36.6 84 18 126/84 (98) 97 Room Air 06/14/18 20:04 Room Air 06/14/18 16:19 36.7 86 18 119/72 (88) 91 Room Air Physical Exam General Appearance: WD/WN, no apparent distress Eyes: normal inspection, PERRL, EOMI Neck: supple, no JVD, trachea midline Respiratory/Chest: no respiratory distress, no accessory muscle use, + decreased breath sounds Cardiovascular: regular rate, rhythm, no gallop, no murmur Abdomen: normal bowel sounds, non tender, soft Extremities: normal inspection, no pedal edema, no calf tenderness Neurologic/Psych: alert, normal mood/affect, oriented x 3 Skin: normal color, no jaundice, no rash Laboratory Results Last 24 Hours Test 06/14/18 15:58 06/15/18 06:43 Hemoglobin 9.6 g/dL 8.8 g/dL Hematocrit 31.0 % 28.6 % White Blood Count 5.78 K/uL Red Blood Count 3.34 M/uL Mean Corpuscular Volume 85.6 fL Mean Corpuscular Hemoglobin 26.3 pg Mean Corpuscular Hemoglobin Concent 30.8 g/dl RDW Standard Deviation 47.1 fL RDW Coefficient of Variation 15.1 % Platelet Count 153 K/uL Mean Platelet Volume 8.2 fL Sodium Level 139 mmol/L Potassium Level 3.7 mmol/L Chloride Level 104 mmol/L Carbon Dioxide Level 27 mmol/L Anion Gap 7.0 mmol/L Blood Urea Nitrogen 21 mg/dl Creatinine 1.14 mg/dl Est Creatinine Clear Calc Drug Dose 51.7 ml/min Estimated GFR () 69.5 Estimated GFR (Non- 60.0 BUN/Creatinine Ratio 18.1 Random Glucose 96 mg/dl Calcium Level 8.0 mg/dl Magnesium Level 1.7 mg/dl Total Bilirubin 0.4 mg/dl Direct Bilirubin 0.1 mg/dl Aspartate Amino Transf (AST/SGOT) 23 U/L Alanine Aminotransferase (ALT/SGPT) 23 U/L Alkaline Phosphatase 82 U/L Total Protein 5.8 gm/dl Albumin 2.6 gm/dl Assessment and Plan Patient is a 82 year old male seen for anemia, melena x 1 week. EGD on 06/13/18 showed multiple clean based ulcers at his Billroth II anastomosis site. He hasn' t had any more signs of GI bleeding overnight. Given 1U PRBC transfusion Hgb up to 10, then trended down to 8.8 this AM. He was having dark smear of coffee ground looking stools. Denies any abd pain, n/v. He has a complicated GI hx: hx of takedown duodenal fistula, right hemicolectomy , antrectomy with abner-en-Y gastrojejunostomy, cholecystectomy, placement of T tube and repair of umbilical hernia for a duodenal fistula on 03/18/2010 complicated by evisceration that was repaired by Dr. Soni on 03/30/10. Post op complication included sepsis at that time. He also have been having recurrent pancreatitis, recently admitted in [facility] mid May and had repeated ERCP for choledocholithiasis removal by Dr. Cha in [facility]. Last ERCP done 2017. During his last admission at [facility], they aborted repeat ERCP as he went into Afib w RVR. MRCP this admission showed likely recurrence of choledocholithiasis. Plan - Advanced diet as tolerated. - PPI bolus and gtt x 72 hrs if he is agreeable to stay another night then on DC Protonix 40mg BID x 6 weeks, then once daily Repeat EGD for ulcer re-eval in 3 months' time. - Monitor H/H and transfuse prn - Given his post op anatomy and possibly difficulty in accessing his biliary tree, his ERCP for choledocholithiasis removal should be done at [facility] by Dr. Cha who did his past ERCPs. Message sent to [facility] GI test engineering technician to assist w shakila. I saw and evaluated the patient with Ms. Mills. I agree with the plan as outlined by her. The patient should continue a Protonix drip for another 24 hours at which time we can transition to Protonix 40 mg 2 times for 6 weeks then 1 time daily thereafter. I would also suggest the patient be placed onto an iron supplement for 6 weeks to help rebuild his iron stores and red blood cell count. I would also suggest Carafate 1 g twice daily for 6 weeks. Please call with any questions or concerns.
[2018-06-15] MEDS: FERROUS SULFATE 325 MG TAB PO SCH (17:20)
[2018-06-15] MEDS: SUCRALFATE 1 GM/10 ML UDC PO SCH ×2 (17:21→20:10)
[2018-06-15] MEDS: METOPROLOL TARTRATE 25 MG TAB PO SCH (20:10)
[2018-06-16] MEDS: PANTOprazole INJ 40 MG in DEXTROSE 5% 100ML IV SCH ×2 (02:04→06:35)
[2018-06-16] MEDS ORDERED: NURSING VERBAL MED ORDER ONE (02:15)
[2018-06-16 03:46] VITALS: BP 112/67; PULSE 75; TEMP 36.8; O2SAT 96
[2018-06-16 05:02] LABS: HEMATOCRIT 29.8 % (42-52); HEMOGLOBIN 9.3 g/dL (14.0-18.0); MEAN CELL VOLUME 85.6 fL (80-100); MEAN CORPUSCULAR HEMOGLOBIN 26.7 pg (25-34); MEAN CORPUSCULAR HGB CONC 31.2 g/dl (32-36); PLATELET COUNT 185 K/uL (130-400); RED CELL DISTRIBUTION WIDTH SD 45.7 fL (36.4-46.3); WHITE BLOOD COUNT 5.59 K/uL (4.8-10.8)
[2018-06-16 05:28] LABS: ALBUMIN 2.9 gm/dl (3.4-5.0); CALCIUM 7.9 mg/dl (8.5-10.1); CREATININE 1.34 mg/dl (0.60-1.40); POTASSIUM 3.8 mmol/L (3.5-5.1); TOTAL PROTEIN 6.6 gm/dl (6.4-8.2)
[2018-06-16 07:13] VITALS: BP 128/73; PULSE 77; TEMP 36.3; O2SAT 95
[2018-06-16] MEDS: FERROUS SULFATE 325 MG TAB PO SCH (07:49)
[2018-06-16] MEDS: METOPROLOL TARTRATE 25 MG TAB PO SCH (07:50)
[2018-06-16] MEDS: SUCRALFATE 1 GM/10 ML UDC PO SCH (07:50)
[2018-06-16] MEDS ORDERED: CRFUDL PO (08:38)
[2018-06-16] MEDS ORDERED: FRRS300 PO (08:38)
[2018-06-16] MEDS ORDERED: PANT40TA2 PO (08:38)
--- NOTE | 2018-06-16 08:58 | Discharge Instructions ---
Discharge Instructions Date of Service Jun 16, 2018. Admission Reason for Admission: GI Bleed Discharge Discharge Diagnosis / Problem: Upper GI bleed due to ulcer Discharge Goals Goal(s): Decrease discomfort, Improve function Activity Recommendations Activity Limitations: resume your previous activity . Instructions / Follow-Up Instructions / Follow-Up You were admitted to the hospital for a GI bleed due to an ulcer. You had some blood loss and required a blood transfusion. You are also found to have stones in your bile duct (you had this problem before ). Avoid taking NSAIDs (ibuprofen, Motrin, Advil, Aleve). You were given a prescription for blood work. Please have this done before your follow-up appointment. MEDICATION CHANGES Start taking pantoprazole (Protonix) 40 mg twice daily 6 weeks, then take 40 mg daily Start taking iron supplement (ferrous sulfate) 325 mg twice daily 6 weeks Start taking sucralfate (Carafate) 1 g twice daily 6 weeks Continue to take your other medications as prescribed. FOLLOW-UP Jil Vizcaino PA-C (works with Dr. Buitrago): Wednesday 06/20 at 2:15 in [place] -You were given a prescription for blood work. Please have this done before your follow-up appointment. Clem Arreola PA-C (cardiology): Saturday 06/30 at 8:15 in [place] You will receive a call from your GI doctor in [place] to schedule your ERCP for the bile duct stones. You also will receive a call from GI regarding a follow-up endoscopy to check on the ulcers. Current Hospital Diet Patient's current hospital diet: AHA Diet (Heart Healthy) Discharge Diet Recommended Diet: AHA Diet (Heart Healthy) Procedures Procedures Performed: EGD Pending Studies Studies pending at discharge: yes List of pending studies: Stool test for H pylori (bacteria) Medical Emergencies . Who to Call and When: Medical Emergencies: If at any time you feel your situation is an emergency, please call 911 immediately. . Non-Emergent Contact Non-Emergency issues call your: Primary Care Provider Call Non-Emergent contact if: you have a fever, your pain is not controlled, your pain is worsening, your pain is unusual for you, your pain is concerning you . 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 "Provider Documentation" section prepared by Meagan Navarrete. .
[2018-06-16] MEDS ORDERED: PANTOprazole SOD 40 MG TAB PO SCH (09:00)
[2018-06-16] MEDS ORDERED: ASPIRIN 81 MG ECTAB PO SCH (09:00)
--- NOTE | 2018-06-16 10:01 | Progress Note ---
Progress Note Date of Service Jun 16, 2018. (Jennyfer Chu CRNP) Progress Note GI short note: Pt was getting discharged this AM by hospital team. VS, Labs reviewed - all stable, no acute events overnight. Awaiting repeat ERCP appt from [facility]. Agree with DC home with f/u labs to check blood ct by PCP within a weeks' time. Continue Protonix 40mg BID x 6 weeks then once daily. Carafate 1g BID x 6 weeks. Repeat EGD in 8-12 weeks' time. (Jennyfer Chu, MELQUIADES) The patient was discharged prior to afternoon rounds. I did discuss the case with Ms. Chu. (Lissett Skelton, DO)
--- NOTE | 2018-06-16 10:43 | Hospitalist Progress Note ---
Hospitalist Progress Note Date of Service Jun 16, 2018. (Meagan Navarrete CRNP) Attending addendum: The patient was seen and examined by me Denies any complaints today and ready to be discharged Denies any palpitation, chest pain, shortness of breath, abdominal pain, nausea and/or vomiting Heart rate remains under control on monitor On examination Hemodynamically stable Chest-clear to auscultate bilaterally Heart-S1-S2 regular, no murmur appreciated Abdomen-benign, nontender, bowel sounds present Extremities-negative for any edema Labs and imaging studies reviewed Agree with assessment and plan as outlined below Discharge home today-we will a follow-up appointment with the GI in [place] Dr. Gertrude Baumann (Lakhwinder Baumann M.D.) Subjective Patient seen and examined. Sitting up in a chair, eager to go home. Denies abdominal pain and nausea. Tolerating diet well. Reports a dark colored bowel movement. No diarrhea. Denies chest pain, palpitations, shortness of breath. No lightheadedness or dizziness. (Meagan Navarrete CRNP) Objective Vital Signs Date Time Temp Pulse Resp B/P (MAP) Pulse Ox O2 Delivery O2 Flow Rate FiO2 06/16/18 08:00 Room Air 06/16/18 07:13 36.3 77 18 128/73 (91) 95 Room Air 06/16/18 03:46 36.8 75 18 112/67 (82) 96 Room Air 06/15/18 23:46 36.7 75 18 127/79 (95) 97 Nasal Cannula 2.0 06/15/18 19:09 Room Air 06/15/18 18:59 36.4 69 18 119/63 (81) 94 Room Air 06/15/18 15:03 36.6 74 18 121/71 (88) 97 Room Air 06/15/18 11:09 36.6 74 22 141/69 (93) 95 Room Air (Meagan Navarrete CRNP) Physical Exam General Appearance: no apparent distress Respiratory/Chest: lungs clear, normal breath sounds, no respiratory distress Cardiovascular: regular rate, rhythm, no edema Abdomen: normal bowel sounds, non tender, soft Neurologic/Psychiatric: alert, oriented x 3 (Meagan Navarrete CRNP) Laboratory Results Item Value Date Time RDW Coefficient of Variation 15.1 % H 06/15/18 0643 White Blood Count 5.59 K/uL 06/16/18444 Hemoglobin 9.3 g/dL L 06/16/18444 Hematocrit 29.8 % L 06/16/18444 Platelet Count 185 K/uL 06/16/18 0445 Sodium Level 138 mmol/L 06/16/18444 Potassium Level 3.8 mmol/L 06/16/18444 Blood Urea Nitrogen 17 mg/dl 06/16/18444 Creatinine 1.34 mg/dl 06/16/18444 (Meagan Navarrete ., [place]) Assessment and Plan UPPER GI BLEED DUE TO GASTROJEJUNOSTOMY ANASTOMOSIS ULCERS ACUTE BLOOD LOSS ANEMIA -Transferred from [place] on 06/13 and admitted to telemetry -Hemoglobin dropped to 7.6 on 06/14 -received 1 unit PRBC -Hemoglobin 9.3 today -s/p EGD on 06/13 which showed several clean-based gastrojejunostomy anastomosis ulcers -Completed 72 hours a Protonix drip this morning; then transition to Protonix 40 mg p.o. twice daily 6 weeks then daily, Carafate 1 g twice daily 6 weeks, ferrous sulfate twice daily 6 weeks with follow-up EGD in 3 months -Dark stools today likely residual blood from bleeding -Stool for H. 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, S/P right colectomy, duodenal stump, Viviane-en-Y gastrojejunostomy and choledochojejunostomy -will need close follow-up with GI at [facility] for ERCP (unable to be performed at [facility] due to complicated anatomy) ATRIAL FIBRILLATION/FLUTTER WITH PAUSES -Recent diagnosis of atrial fibrillation -Appears to be in atrial flutter today -Had a brief pause noted on telemetry while having persistent dry heaving, and initially felt to be vagal in nature however developed more frequent 2-3 second pauses and metoprolol was held; now having some increased HRs with activity and metoprolol was resumed by cardiology -Tolerating metoprolol well with controlled rates and no further pauses -Patient asymptomatic -Patient initially declined anticoagulation which is currently contraindicated at this time due to GI bleeding -Cardiology consult, input appreciated PROLONGED QTC -526 06/13 -> 506 06/14 -> 466 06/15 -Was 482 on EKG from 06/08 -Daily EKG, avoid QTC prolonging agents HYPOKALEMIA, HYPOMAGNESEMIA -Likely due to GI loss -Replace, follow electrolytes HISTORY OF CAD -Stable, no reports chest pain -ok to resume ASA per GI -metoprolol resumed as above HISTORY OF AAA, BILATERAL COMMON ILIAC ARTERY ANEURYSM, ASCENDING AORTIC ROOT ANEURYSM -All stable on CT chest, ABD/pelvis -Follows with vascular surgery CHRONIC PAIN -Continue Butrans patch DVT PROPHYLAXIS -SCDs due to GI bleeding CODE STATUS -Patient is a full code as per my discussion with him admission. DISPOSITION -Did well with therapy, no further PT needed -DC home today (Meagan Navarrete ., [place])
[2018-06-16 10:49] VITALS: BP 128/73; PULSE 77; TEMP 36.3; O2SAT 95
--- NOTE | 2018-06-16 11:02 | Discharge Summary ---
Discharge Summary Date of Service Jun 16, 2018. Discharge Summary Admission Date: Jun 13, 2018 at 06:51 Discharge Date: Jun 16, 2018 Discharge Disposition: Home Principal Diagnosis: UPPER GI BLEED DUE TO GASTROJEJUNOSTOMY ANASTOMOSIS ULCERS Secondary Diagnoses/Problems: ACUTE BLOOD LOSS ANEMIA HISTORY OF RECURRENT CHOLEDOCHOLITHIASIS/PANCREATITIS ATRIAL FIBRILLATION WITH PAUSES PROLONGED QTC HYPOKALEMIA, HYPOMAGNESEMIA HISTORY OF CAD HISTORY OF AAA, BILATERAL COMMON ILIAC ARTERY ANEURYSM, ASCENDING AORTIC ROOT ANEURYSM CHRONIC PAIN Procedures: EGD 06/13/18:- Normal esophagus. - Medium-sized hiatal hernia. - Hematin (altered blood/dfdtno-[id number]-plvh material) in the entire stomach. - Patent Billroth II gastrojejunostomy was found, characterized by several clean based ulcers. - No specimens collected. CT CHEST IMPRESSION: 1. Debris in the lower trachea with dependent infiltrates and bronchial wall thickening could suggest acute on chronic aspiration. 2. 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 3. Stable to slight interval increase in size of the ascending aortic aneurysm, which now measures 5.1 cm in diameter, previously 4.9 cm. 4. Postsurgical changes of CABG. Graft vessel patency cannot be assessed without contrast. 5. Indeterminate subcutaneous nodules in the anterior left chest wall. Correlate clinically. 6. Small to moderate hiatal hernia. CT ABD/PELVIS IMPRESSION: 1. Fusiform aneurysmal dilation of the infrarenal abdominal aorta measuring up to 3.1 cm. Additionally, there is aneurysmal dilation of the bilateral common iliac arteries with extensive arterial calcifications. 2. Fluid-filled nondilated loops of small bowel may be physiologic with enteritis or ileus also in the differential. 3. Large ventral abdominal wall hernia contains nonobstructed small bowel and mesenteric fat. 4. Wall thickening involving the majority of the colon suggests sequela of partial distention. Colitis is felt to be less likely. 5. Circumferential wall thickening of the rectum. Correlate with clinical exam to exclude proctitis or less likely a mucosal mass lesion. 6. Prostatomegaly with urinary bladder distention. 7. Moderate right renal atrophy. MRCP IMPRESSION: 1. Prior cholecystectomy. 2. Mild intrahepatic and extrahepatic biliary ductal dilation with the common bile duct measuring up to 9 mm is likely physiologic from postcholecystectomy state. There are multiple filling defects within the proximal to mid common bile duct over a length of 3.0 cm. Differential considerations would include choledocholithiasis with hemobilia or intraductal cholangiocarcinoma also within the differential. Further evaluation with percutaneous cholangiography may be considered. Consultations: Dr. Skelton, gastroenterology Pending Studies/Follow-Up: Stool for H. pylori pending CBC on 06/20 Follow-up EGD in 8-12 weeks Needs MRCP for choledocholithiasis ([facility] scheduling to call patient to arrange) Medication Reconciliation New Medications: Ferrous Sulfate (Ferrous Sulfate) 325 Mg Tab 325 MG PO BIDM for 42 Days, #84 TAB Pantoprazole (Pantoprazole Sodium) 40 Mg Tab 40 MG PO BID for 42 Days, #84 TAB Sucralfate (Sucralfate) 1 Gm/10 Ml Susp 1 GM PO BID for 42 Days, #840 ML Continued Medications: Aspirin Enteric Coated (Ecotrin Or Generic) 81 Mg Tab 81 MG PO DAILY, TAB Buprenorphine (Butrans) 20 Mcg/Hr Dis 1 PATCH TOP WK for 28 Days, #4 PATCH Cholecalciferol (Vitamin D 1000 Unit) 1,000 Unit Cap 1000 INTER.UNIT PO DAILY, CAP Gabapentin (Neurontin) 600 Mg Tab 1 TAB PO TID for 30 Days, #90 TAB 3 Refills Metoprolol Tartrate (Lopressor) (Lopressor) 25 Mg Tab 12.5 MG PO BID, TAB Multiple Vitamin (Multivitamin) 1 Tab Tab 1 TAB PO DAILY, TAB Vitamin E (Vitamin E 400 Iu) 400 Unit Cap 400 INTER.UNIT PO DAILY, CAP Admission Information HPI (per Admitting provider): 82-year-old male who was transferred from [facility] for evaluation of nausea, vomiting, suspected upper GI bleeding. 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 Patient was recently discharged from [facility] 06/09 for suspected choledocholithiasis. During that admission, patient developed new onset atrial fibrillation and ERCP was canceled. Patient's LFTs have normalized. Patient reports he has felt poorly since being discharged from the hospital. He reports persistent abdominal pain, nausea, vomiting, dry heaves, hiccuping. Over the past few days, he reports emesis that has been very dark in color and stools have been very dark over the past week. He denies chest pain and shortness of breath. No lightheadedness, dizziness, diaphoresis, syncopal events. He denies fevers and chills. No urinary symptoms. At [place], patient was found to have heme positive stool and hemoglobin of 10.3 which is down trended from prior hemoglobins. An attempt was made to transfer him to [facility] however the GI service there did not feel as though he would need an ERCP and also due to bed availability issues, the patient was transferred to [facility]. During my exam, patient continues to have hiccups episodes of dry heaving. He is hemodynamically stable. Physical Exam (per Admitting): General Appearance: WD/WN, + mild distress (Dry heaving, hiccups) Eyes: normal inspection, EOMI, sclerae normal ENT: hearing grossly normal, + pertinent finding (Mucous membranes dry) Neck: supple, no JVD, trachea midline Respiratory/Chest: no respiratory distress, + decreased breath sounds Cardiovascular: no edema, normal peripheral pulses, + tachycardia (Heart rate in the low 100s), + irregularly irregular Abdomen/GI: normal bowel sounds, soft, no organomegaly, + tenderness (Mild, generalized) Extremities/Musculoskelatal: normal inspection, no calf tenderness, normal capillary refill Neurologic/Psych: no motor/sensory deficits, alert, normal mood/affect, oriented x 3, + pertinent finding (Intermittently lethargic however arouses easily to verbal stimuli) Skin: normal color, warm/dry Hospital Course UPPER GI BLEED DUE TO GASTROJEJUNOSTOMY ANASTOMOSIS ULCERS ACUTE BLOOD LOSS ANEMIA -Transferred from [place] on 06/13 and admitted to telemetry -Hemoglobin dropped to 7.6 on 06/14 -received 1 unit PRBC -Hemoglobin 9.3 06/16 -s/p EGD on 06/13 which showed several clean-based gastrojejunostomy anastomosis ulcers -Completed 72 hours Protonix drip; then transition to Protonix 40 mg p.o. twice daily 6 weeks then daily, Carafate 1 g twice daily 6 weeks, ferrous sulfate twice daily 6 weeks with follow-up EGD in 8-12 weeks -Stool for H. 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 due to complicated anatomy) -[facility] scheduling to call patient to arrange ATRIAL FIBRILLATION/FLUTTER WITH PAUSES -Recent diagnosis of atrial fibrillation -Had a brief pause noted on telemetry while having persistent dry heaving, and initially felt to be vagal in nature however developed more frequent 2-3 second pauses and metoprolol was held; now having some increased HRs with activity and metoprolol was resumed by cardiology -Tolerating metoprolol well with controlled rates and no further pauses -Patient asymptomatic -Patient initially declined anticoagulation which is currently contraindicated at this time due to GI bleeding -Outpatient cardiology follow-up PROLONGED QTC -526 06/13 -> 506 06/14 -> 466 06/15 -Was 482 on EKG from 06/08 HYPOKALEMIA, HYPOMAGNESEMIA -Likely due to GI loss -Replaced and improved HISTORY OF CAD -Stable, no reports chest pain -ok to resume ASA per GI -metoprolol resumed as above HISTORY OF AAA, BILATERAL COMMON ILIAC ARTERY ANEURYSM, ASCENDING AORTIC ROOT ANEURYSM -All stable on CT chest, ABD/pelvis -Follows with vascular surgery CHRONIC PAIN -Continue Butrans patch Total time spent on discharge = 30 mins This includes examination of the patient, discharge planning, medication reconciliation, and communication with other providers. Discharge Instructions Discharge Instructions Date of Service Jun 16, 2018. Admission Reason for Admission: GI Bleed Discharge Discharge Diagnosis / Problem: Upper GI bleed due to ulcer Discharge Goals Goal(s): Decrease discomfort, Improve function Activity Recommendations Activity Limitations: resume your previous activity . Instructions / Follow-Up Instructions / Follow-Up You were admitted to the hospital for a GI bleed due to an ulcer. You had some blood loss and required a blood transfusion. You are also found to have stones in your bile duct (you had this problem before ). Avoid taking NSAIDs (ibuprofen, Motrin, Advil, Aleve). You were given a prescription for blood work. Please have this done before your follow-up appointment. MEDICATION CHANGES Start taking pantoprazole (Protonix) 40 mg twice daily 6 weeks, then take 40 mg daily Start taking iron supplement (ferrous sulfate) 325 mg twice daily 6 weeks Start taking sucralfate (Carafate) 1 g twice daily 6 weeks Continue to take your other medications as prescribed. FOLLOW-UP Jil Vizcaino PA-C (works with Dr. Buitrago): Wednesday 06/20 at 2:15 in [place] -You were given a prescription for blood work. Please have this done before your follow-up appointment. Clem Arreola PA-C (cardiology): Saturday 06/30 at 8:15 in [place] You will receive a call from your GI doctor in [place] to schedule your ERCP for the bile duct stones. You also will receive a call from GI regarding a follow-up endoscopy to check on the ulcers. Current Hospital Diet Patient's current hospital diet: AHA Diet (Heart Healthy) Discharge Diet Recommended Diet: AHA Diet (Heart Healthy) Procedures Procedures Performed: EGD Pending Studies Studies pending at discharge: yes List of pending studies: Stool test for H pylori (bacteria) Medical Emergencies . Who to Call and When: Medical Emergencies: If at any time you feel your situation is an emergency, please call 911 immediately. . Non-Emergent Contact Non-Emergency issues call your: Primary Care Provider Call Non-Emergent contact if: you have a fever, your pain is not controlled, your pain is worsening, your pain is unusual for you, your pain is concerning you Additional Copies To Jil Vizcaino PA-C, Amit M.D.
--- NOTE | 2018-06-20 07:45 | EDITING REQUIRED CODING QUERY ---
CODING QUERY To promote full compliance with coding requirements relating to patient care, provider participation is requested in all cases of fish cake maker uncertainty. Please assist us with the question(s) below: Coding Question(s): Please specify below, in your clinical opinion, regarding the Gastrojejunostomy Anastomosis Ulcers. ( ) The Ulcers are likely postoperative complication of the Gastrojejunostomy ( + ) The Ulcers are Not likely postoperative complication of the Gastrojejunostomy Physician's Response(s): Thank you aNhed Naranjo Principal Diagnosis: "_that condition established after study, to be chiefly responsible for occasioning the admission of the patient to the hospital for care." Co-Existing Principal Diagnosis: "_when two or more diagnoses equally meet the criteria for principal diagnosis as determined by the circumstances of admission, diagnostic work up, and/or therapy provided, and the Alphabetic Index, Tabular List, or another coding guideline does not provide sequencing direction, any one of the diagnoses may be sequenced first." "When the physician has documented what appears to be a current diagnosis in the body of the record, but has not included the diagnosis in the final diagnostic statement, the physician should be asked whether the diagnosis should be added." (Source [facility]oding [facility] 2 QTR90. p3-4)
== END 2018-06-16 12:10 | disposition home or self-care (01) | DRG 378 ==
LOC: C.2T 06:51
PROVIDERS: ADMIT Internal Medicine; ATTEND Internal Medicine
PROC: 0DJ08ZZ Inspection of Upper Intestinal Tract, Via Natural or Artificial Opening Endoscopic (ICD-10-PCS; principal; 2018-06-13 10:49)
DX: K28.4 Chronic or unspecified gastrojejunal ulcer with hemorrhage (principal); D62 Acute posthemorrhagic anemia; I48.1 Persistent atrial fibrillation; I48.92 Unspecified atrial flutter; Q25.43 Congenital aneurysm of aorta; E87.6 Hypokalemia; E83.42 Hypomagnesemia; K80.50 Calculus of bile duct without cholangitis or cholecystitis without obstruction; K44.9 Diaphragmatic hernia without obstruction or gangrene; I45.81 Long QT syndrome; I71.4 Abdominal aortic aneurysm, without rupture; I72.3 Aneurysm of iliac artery; I25.10 Atherosclerotic heart disease of native coronary artery without angina pectoris; I13.10 Hypertensive heart and chronic kidney disease without heart failure, with stage 1 through stage 4 chronic kidney disease, or unspecified chronic kidney disease; N18.3 Chronic kidney disease, stage 3 (moderate); G89.29 Other chronic pain; E66.9 Obesity, unspecified; Z79.899 Other long term (current) drug therapy; Z79.82 Long term (current) use of aspirin; Z87.19 Personal history of other diseases of the digestive system; Z95.1 Presence of aortocoronary bypass graft; Z68.30 Body mass index [BMI] 30.0-30.9, adult; Z87.891 Personal history of nicotine dependence; Z91.041 Radiographic dye allergy status